=== PATIENT | male | born 1965 | race Hispanic/Latino ===

== ENCOUNTER 2020-04-27 18:05 | Inpatient (IN) | payer OTHER, SELFPAY ==
[2020-04-27] VITALS (22 sets, daily range): BP systolic 124–160; BP diastolic 66–90
[2020-04-27 19:16] LABS: BASOPHILS % (AUTO) 0.2 % (0.0-5.0); EOSINOPHILS % (AUTO) 0.1 % (0.0-8.0); HEMATOCRIT 43.8 % (42-54); LYMPHOCYTES % (AUTO) 9.8 % (21.0-51.0); MEAN CORPUSCULAR HEMOGLOBIN 32.5 pg (27.0-33.0); MEAN CORPUSCULAR VOLUME 95.6 fL (79-99); MONOCYTES % (AUTO) 8.1 % (3.0-13.0); NEUTROPHILS % (AUTO) 81.1 % (40.0-77.0); PLATELET COUNT (AUTO) 296 K/uL (130-400); RED BLOOD CELL COUNT(AUTO) 4.58 MIL/uL (4.50-6.20); RED CELL DISTRIBUTION WIDTH 12.3 % (11.0-15.5)
[2020-04-27] MEDS ORDERED: KETOROLAC TROMETHAMINE 30MG/ML ONE (19:24)
[2020-04-27 19:31] LABS: CREATININE 1.5 mg/dL (0.5-1.5); POTASSIUM 3.9 mmol/L (3.5-5.1)
[2020-04-27 19:38] LABS: BILIRUBIN,TOTAL 0.9 mg/dL (0.2-1.0); TOTAL PROTEIN, SERUM 8.2 g/dL (6.0-8.3)
[2020-04-27] MEDS ORDERED: CLINDAMYCIN 600 MG/D5% WATER 50 ML IV ONE (19:38)
[2020-04-27] MEDS ORDERED: PROPOFOL 10 MG/ML 20ML VIAL IV ONE (20:52)
[2020-04-27] MEDS ORDERED: LIDOCAINE PF 2% 5ML ABBOJECT ONE (20:52)
[2020-04-27] MEDS ORDERED: SUCCINYLCHOLINE 200MG/10ML SYR ONE (20:52)
[2020-04-27] MEDS ORDERED: FENTANYL CITRATE PF 50 MCG/1 ML 2ML VIAL ONE (20:53)
[2020-04-27] MEDS: SODIUM CHLORIDE 0.9% 1000ML 1,000 ML IV SCH (20:58)
[2020-04-27] MEDS ORDERED: SODIUM CHLORIDE 0.9% 1000ML 1,000 ML IV SCH (21:00)
[2020-04-27] MEDS ORDERED: ACETAMINOPHEN 325 MG TAB PO PRN ×2 (21:00)
[2020-04-27] MEDS ORDERED: ONDANSETRON HCL 4 MG/2 ML VIAL IV PRN (21:00)
[2020-04-27] MEDS ORDERED: DIPHENHYDRAMINE HCL 25 MG CAPSULE PO PRN (21:00)
[2020-04-27] MEDS ORDERED: NITROGLYCERIN 0.4 MG SL TAB SL PRN (21:00)
[2020-04-27] MEDS ORDERED: LEVOFLOXACIN 500 MG/D5W 100 ML 100 ML IV SCH (21:15)
[2020-04-27] MEDS ORDERED: LIDOCAINE 1%-EPI 1:100,000 20 ML VIAL IJ ONE (21:22)
[2020-04-27] MEDS ORDERED: ONDANSETRON HCL 4 MG/2 ML VIAL ONE (21:35)
[2020-04-27] MEDS ORDERED: MEPERIDINE-PF 25 MG/ML SYG ONE ×2 (21:35→22:56)
[2020-04-27 21:46] LABS: INR 1.06 (0.85-1.15); PARTIAL THROMBOPLASTIN TIME 34.1 SEC (26.3-35.5); PROTHROMBIN TIME 11.4 SEC (9.6-11.6)
[2020-04-27 21:52] LABS: MAGNESIUM 2.4 mg/dL (1.80-2.40)
[2020-04-27 22:04] LABS: CRP QUANTITATIVE 344.9 mg/L (0.00-9.0)
[2020-04-27] MEDS ORDERED: METRONIDAZOLE 500MG/100ML BAG 100 ML ONE (22:11)
[2020-04-27] MEDS: METRONIDAZOLE 500MG/100ML BAG 100 ML IV SCH (22:15)
[2020-04-28] VITALS (7 sets, daily range): BP systolic 147–169; BP diastolic 79–91
[2020-04-28] MEDS ORDERED: PROMETHAZINE HCL 25 MG TABLET PO PRN (01:00)
[2020-04-28] MEDS ORDERED: LORAZEPAM 2 MG/ML 1 ML VIAL IVP PRN ×2 (01:00)
[2020-04-28] MEDS ORDERED: CHLORDIAZEPOXIDE HCL 25 MG CAP PO PRN ×2 (01:00)
[2020-04-28] MEDS ORDERED: PHARMACY COMMUNICATION MISC PRN (01:00)
[2020-04-28] MEDS ORDERED: SODIUM CHLORIDE 0.9% 1000ML 1,000 ML IV SCH (01:15)
[2020-04-28] MEDS: HYDRALAZINE HCL 20 MG/ML VIAL IV PRN (01:37)
[2020-04-28] MEDS: CEFTRIAXONE SODIUM 1 GM IVP SCH ×2 (01:37→10:43)
[2020-04-28] MEDS ORDERED: CLINDAMYCIN 600 MG/D5% WATER 50 ML IV SCH (02:00)
--- NOTE | 2020-04-28 02:00 | NUR ---
DRESSING REINFORCED REINFORCED DRESSING, DRESSING SATURATED WITH SANGUINEOUS DRAINAGE. MEDIPORE TAPE APPLIED.
--- NOTE | 2020-04-28 02:30 | NUR ---
DRESSING CHANGE DRESSING CAME OFF. PLACED 4X4 GAUZE PADS AND SECURED WITH MEDIPORE TAPE. EDUCATED PT NOT TO TOUCH INCISION SITE WITH BARE HANDS, PT REPLIED OK.
--- NOTE | 2020-04-28 03:31 | NUR ---
DRESSING PT REPORTS THAT DRESSING CAME OFF. PT TOUCHING INCISION SITE WITH HANDS. REINFORCED TEACHING TO BOT TOUCH INCISION SITE, PT VERBALIZED OK. WILL REINFORCE DRESSING.
[2020-04-28] MEDS: METRONIDAZOLE 500MG/100ML BAG 100 ML IV SCH ×4 (03:38→20:47)
[2020-04-28 03:51] LABS: HEMATOCRIT 37.1 % (42-54); MEAN CORPUSCULAR HEMOGLOBIN 32.7 pg (27.0-33.0); MEAN CORPUSCULAR HGB CONC 34.2 g/dL (32.0-36.0); MEAN CORPUSCULAR VOLUME 95.6 fL (79-99); PLATELET COUNT (AUTO) 259 K/uL (130-400); RED BLOOD CELL COUNT(AUTO) 3.88 MIL/uL (4.50-6.20); RED CELL DISTRIBUTION WIDTH 12.4 % (11.0-15.5)
[2020-04-28 03:58] LABS: ALBUMIN 2.5 g/dL (3.5-5.0); BILIRUBIN,TOTAL 0.8 mg/dL (0.2-1.0); CREATININE 1.3 mg/dL (0.5-1.5); TOTAL PROTEIN, SERUM 6.8 g/dL (6.0-8.3)
--- NOTE | 2020-04-28 04:00 | NUR ---
ETOH ASSESSMENT PT PRESENTS WITH SWEATING, RESTLESSNESS AND MILD ANXIETY. ADMINISTERED MED PER MAR
[2020-04-28 06:46] LABS: APPEARANCE,URINE Clear (CLEAR); BILIRUBIN,URINE Negative (NEGATIVE); COLOR,URINE Yellow (YELLOW); GLUCOSE, URINE (UA) Negative (NEGATIVE); KETONES,URINE Trace mg/dL (NEGATIVE); LEUKOCYTE ESTERASE ,URINE Negative (NEGATIVE); NITRATE,URINE Negative (NEGATIVE); OCCULT BLOOD,URINE Negative (NEGATIVE); PROTEIN,URINE POS 1+ mg/dL (NEGATIVE)
[2020-04-28 06:57] LABS: BACTERIA,URINE Rare /HPF (None Seen); RBC,URINE 0-1 /HPF (0-1); SQUAMOUS EPITHELIAL CELL,UR Rare /HPF (0-2); WBC,URINE 0-1 /HPF (0-1)
[2020-04-28 07:55] LABS: LYMPHOCYTES % (MANUAL) 4 % (22-44); MAN.DIFF COMMENT-IMPRESSION MANUAL DIFFERENTIAL; MONOCYTES % (MANUAL) 4 % (2-9); PLATELET MORPHOLOGY COMMENT ADEQUATE; SEGMENTED NEUTROPHILS % 92 % (40-70)
[2020-04-28] MEDS: MULTIVITAMIN TABLET PO SCH (08:00)
[2020-04-28] MEDS: FOLIC ACID 1 MG TABLET PO SCH (08:00)
[2020-04-28] MEDS: NICOTINE 21 MG/ 24 HR PATCH TD SCH (08:01)
[2020-04-28] MEDS: THIAMINE HCL 100 MG/ML 2ML VIAL IM SCH (08:01)
[2020-04-28] MEDS: SODIUM CHLORIDE 0.9% 1000ML 1,000 ML IV SCH ×2 (09:42→17:00)
[2020-04-28] MEDS: ZOSYN 3.375GM+NS 50ML 50 ML IV SCH ×2 (13:53→22:41)
--- NOTE | 2020-04-28 14:00 | NUR ---
PT REST WELL, NO SWEATING, PT IS CALM, NO FEVER.
--- NOTE | 2020-04-28 17:26 | NUR ---
CM NOTE/IA UNABLE TO MEET WITH PATIENT FACE TO FACE DUE TO IN RESTRICTIVE PART OF HOSPITAL. PATIENT CALLED ON ROOM PHONE. PER PATIENT, IS INDEPENDENT WITH ADLS, NO USE OF DME, NO USE OF COMMUNITY RESOURCES, AND PLAN IS TO RETURN TO LIVES WITH HIS GIRLFRIEND IN [place]. PER PATIENT, WISHES TO ADD SECOND OF KIN TO FACESHEET. ADDED, JULIANNE LO [phone], GIRLFRIENDS MOTHERS TO FACESHEET PER REQUEST. ALSO CORRECTED GILFRIENDS NUMBER, MOMO VINES, . CORRECTIONS FAXED TO REGISTRATION FOR UPDATE OF FACESHEET, CONFIRMED RECEIVED BY FAX RECEIPT. Addendum: 04/28/20 at 1729 by ELVIA VINCENT RN CM Amended: Links added.
[2020-04-28] MEDS: ACETAMINOPHEN-CODEINE 300/30MG TAB PO PRN (17:47)
[2020-04-29] MEDS: SODIUM CHLORIDE 0.9% 1000ML 1,000 ML IV SCH ×3 (02:58→22:58)
[2020-04-29] MEDS: ZOSYN 3.375GM+NS 50ML 50 ML IV SCH ×3 (04:09→21:36)
[2020-04-29] MEDS: METRONIDAZOLE 500MG/100ML BAG 100 ML IV SCH ×4 (04:09→21:36)
[2020-04-29 04:34] VITALS: BP 174/88
[2020-04-29] MEDS: HYDRALAZINE HCL 20 MG/ML VIAL IV PRN ×2 (06:07→21:36)
[2020-04-29 06:39] LABS: BASOPHILS % (AUTO) 0.3 % (0.0-5.0); EOSINOPHILS % (AUTO) 1.1 % (0.0-8.0); HEMATOCRIT 40.4 % (42-54); LYMPHOCYTES % (AUTO) 10.3 % (21.0-51.0); MEAN CORPUSCULAR HEMOGLOBIN 32.7 pg (27.0-33.0); MEAN CORPUSCULAR HGB CONC 33.9 g/dL (32.0-36.0); MEAN CORPUSCULAR VOLUME 96.4 fL (79-99); MONOCYTES % (AUTO) 7.9 % (3.0-13.0); PLATELET COUNT (AUTO) 321 K/uL (130-400); RED BLOOD CELL COUNT(AUTO) 4.19 MIL/uL (4.50-6.20); RED CELL DISTRIBUTION WIDTH 12.4 % (11.0-15.5); WHITE BLOOD COUNT (AUTO) 9.5 K/uL (4.8-10.8)
[2020-04-29 07:02] LABS: CREATININE 1.2 mg/dL (0.5-1.5); POTASSIUM 4.2 mmol/L (3.5-5.1)
[2020-04-29 07:34] LABS: CRP QUANTITATIVE 213.7 mg/L (0.00-9.0)
[2020-04-29 08:00] VITALS: BP 143/88
--- NOTE | 2020-04-29 08:00 | NUR ---
DRESSING DRESSING CHANGED, NS TO CLEAN AREA AND 4X4. DRESSING DRY AND INTACT
[2020-04-29] MEDS: MULTIVITAMIN TABLET PO SCH (08:23)
[2020-04-29] MEDS: FOLIC ACID 1 MG TABLET PO SCH (08:23)
[2020-04-29] MEDS: NICOTINE 21 MG/ 24 HR PATCH TD SCH ×2 (08:24→09:35)
[2020-04-29] MEDS: THIAMINE HCL 100 MG/ML 2ML VIAL IM SCH (08:25)
[2020-04-29] MEDS: AMLODIPINE BESYLATE 5 MG TAB PO SCH (09:36)
[2020-04-29 11:27] VITALS: BP 142/76
--- NOTE | 2020-04-29 14:16 | NUR ---
DR. LESLEY SUTTON CAME TO SEE PT AT BEDSIDE AND REMOVED JAI DRAIN, WHICH PATIENT DIANNA WELL.
--- NOTE | 2020-04-29 15:50 | NUR ---
Referral to SS for Etoh, marijuana use, tobacco DAMIAN spoke with pt. by phone due to pt. room/floor restricted. Pt. stated that he is self employed, resides with his girlfriend and is independent with ADL's. DAMIAN spoke with pt. about Etoh, tobacco and marijuana use for which pt. admitted he has been using for decades. Pt. denied that use has effected daily activities. SW discussed risks associated with use; pt. voiced knowledge/awareness. SW spoke with pt. about seeking counseling for substance use and pt. reported that he has been to counseling twice in the past and is not interested in any more counseling. However, pt. was receptive to information. Pt. requested assistance in contacting [employer]/in house financial. DAMIAN notified [facility] that pt. requesting call. Pt. voiced no other needs/concerns. [facility] Substance Use Disorders pamphlet provided. MINNA made aware.
--- NOTE | 2020-04-29 15:51 | NUR ---
CHART CHECK COMPLETED. Pt IS A 54 Y.O. MALE ADMITTED SECONDARY TO LEFT MANDIBULAR ABSCESS, LAINEY'S ANGINA, PUI COVID, HYPERTENSION, ETOH WITHDRAWS. Pt DENIES PAST MEDICAL HISTORY. Pt CURRENTLY ON CLEAR LIQUID DIET. PLEASE REQUEST SKILLED SPEECH/SWALLOW EVALUATION IF Pt PRESENTS WITH +S/S OF ASPIRATION OR DIFFICULTY SWALLOWING. Addendum: 04/29/20 at 1554 by AKI VELEZ, [facility] Amended: Links added.
[2020-04-29 16:00] VITALS: BP 157/79
--- NOTE | 2020-04-29 18:03 | NUR ---
CM NOTE/TROPICAL PAMPHLET PER QUARTER TRIMMER, TROPICAL PAMPHLET TO BE GIVEN TO PATIENT. PATIENT IN RESTRICTIVE PART OF HOSPITAL, PAMPHLET GIVEN TO PRIMARY NURSE, EMMY CALZADA, TO GIVE TO PATIENT.
--- NOTE | 2020-04-29 18:09 | NUR ---
COVID [address] YELITZA SEVILLA TO MED/SURG AND WILL WAIT FOR CULTURE FROM SURGICAL AREA.
[2020-04-29 20:00] VITALS: BP 163/85
--- NOTE | 2020-04-29 22:08 | NUR ---
PT TRANSFER TRANSFER TO MED SURG FLOOR VIA WC. PT ON RA, NO C/O PAIN, NO DISTRESS NOTED. ELSI GUTHRIE RECEIVED REPORT OVER TELEPHONE, WILL RECEIVE PT IN ROOM 327. PERSONAL BELONGINGS TRANSPORTED WITH PT.
[2020-04-29] MEDS: ACETAMINOPHEN-CODEINE 300/30MG TAB PO PRN (22:25)
[2020-04-29 23:53] VITALS: BP 135/97
[2020-04-30] MEDS: METRONIDAZOLE 500MG/100ML BAG 100 ML IV SCH ×4 (04:14→23:54)
[2020-04-30] MEDS: ZOSYN 3.375GM+NS 50ML 50 ML IV SCH ×3 (04:14→20:07)
[2020-04-30 04:22] VITALS: BP 146/96
[2020-04-30] MEDS: ACETAMINOPHEN-CODEINE 300/30MG TAB PO PRN (06:25)
[2020-04-30 07:46] LABS: BASOPHILS % (AUTO) 0.2 % (0.0-5.0); EOSINOPHILS % (AUTO) 2.7 % (0.0-8.0); HEMATOCRIT 40.2 % (42-54); LYMPHOCYTES % (AUTO) 21.9 % (21.0-51.0); MEAN CORPUSCULAR HEMOGLOBIN 31.8 pg (27.0-33.0); MEAN CORPUSCULAR HGB CONC 33.1 g/dL (32.0-36.0); MEAN CORPUSCULAR VOLUME 96.2 fL (79-99); MONOCYTES % (AUTO) 10.4 % (3.0-13.0); NEUTROPHILS % (AUTO) 64.3 % (40.0-77.0); PLATELET COUNT (AUTO) 361 K/uL (130-400); RED BLOOD CELL COUNT(AUTO) 4.18 MIL/uL (4.50-6.20); RED CELL DISTRIBUTION WIDTH 12.1 % (11.0-15.5); WHITE BLOOD COUNT (AUTO) 6.3 K/uL (4.8-10.8)
[2020-04-30 07:56] LABS: POTASSIUM 3.6 mmol/L (3.5-5.1)
--- NOTE | 2020-04-30 08:00 | NUR ---
DONE IN EARLY AM NO CHANGES Addendum: 04/30/20 at 1102 by ANTONIA VINES RN RN Amended: Links added.
[2020-04-30 08:07] VITALS: BP 155/89
[2020-04-30] MEDS: SODIUM CHLORIDE 0.9% 1000ML 1,000 ML IV SCH ×2 (08:58→18:58)
[2020-04-30] MEDS: NICOTINE 21 MG/ 24 HR PATCH TD SCH ×2 (09:00→09:14)
[2020-04-30] MEDS: MULTIVITAMIN TABLET PO SCH (09:02)
[2020-04-30] MEDS: THIAMINE HCL 100 MG/ML 2ML VIAL IM SCH (09:02)
[2020-04-30] MEDS: FOLIC ACID 1 MG TABLET PO SCH (09:02)
[2020-04-30] MEDS: AMLODIPINE BESYLATE 5 MG TAB PO SCH (09:14)
--- NOTE | 2020-04-30 11:02 | NUR ---
daily wt. done in early am
[2020-04-30 11:27] VITALS: BP 136/87
[2020-04-30 15:57] VITALS: BP 138/90
[2020-04-30 20:16] VITALS: BP 142/76
[2020-05-01 00:28] VITALS: BP 167/82
[2020-05-01] MEDS: SODIUM CHLORIDE 0.9% 1000ML 1,000 ML IV SCH ×2 (03:25→14:58)
[2020-05-01] MEDS: METRONIDAZOLE 500MG/100ML BAG 100 ML IV SCH ×2 (03:25→11:59)
[2020-05-01 04:36] VITALS: BP 142/88
[2020-05-01] MEDS: ZOSYN 3.375GM+NS 50ML 50 ML IV SCH ×3 (04:57→20:09)
[2020-05-01 06:34] LABS: BASOPHILS % (AUTO) 0.3 % (0.0-5.0); EOSINOPHILS % (AUTO) 2.1 % (0.0-8.0); HEMATOCRIT 39.5 % (42-54); LYMPHOCYTES % (AUTO) 21.9 % (21.0-51.0); MEAN CORPUSCULAR HEMOGLOBIN 31.9 pg (27.0-33.0); MEAN CORPUSCULAR HGB CONC 33.2 g/dL (32.0-36.0); MEAN CORPUSCULAR VOLUME 96.1 fL (79-99); NEUTROPHILS % (AUTO) 65.9 % (40.0-77.0); PLATELET COUNT (AUTO) 389 K/uL (130-400); RED BLOOD CELL COUNT(AUTO) 4.11 MIL/uL (4.50-6.20); RED CELL DISTRIBUTION WIDTH 12.2 % (11.0-15.5); WHITE BLOOD COUNT (AUTO) 7.8 K/uL (4.8-10.8)
[2020-05-01 07:00] LABS: CREATININE 1.1 mg/dL (0.5-1.5)
[2020-05-01 08:20] VITALS: BP 189/83
[2020-05-01] MEDS: NICOTINE 21 MG/ 24 HR PATCH TD SCH ×2 (09:00→09:26)
[2020-05-01] MEDS: MULTIVITAMIN TABLET PO SCH (09:26)
[2020-05-01] MEDS: AMLODIPINE BESYLATE 5 MG TAB PO SCH (09:26)
[2020-05-01 11:27] VITALS: BP 141/76
--- NOTE | 2020-05-01 14:03 | NUR ---
I SPOKE TO DR SUTTON ON THE PHONE IN REGARDS TO PT'S C/O FEELING A BALL OR SWELLING AT SITE OF SURGERY ON CHIN AND HE STATED IT WAS NORMAL FOR PT TO FEEL A BALL TYPE SWELLING UNDER THE SKIN AT SITE OF I&D ON MANDIBLE AND IT WOULD TAKE ABOUT A MONTH FOR THAT TO GO AWAY; I HAVE UPDATED THE PATIENT ON THIS
[2020-05-01 16:01] VITALS: BP 166/84
[2020-05-01] MEDS: ACETAMINOPHEN-CODEINE 300/30MG TAB PO PRN (20:10)
[2020-05-01 20:20] VITALS: BP 156/84
[2020-05-02 00:24] VITALS: BP 165/94
[2020-05-02] MEDS: SODIUM CHLORIDE 0.9% 1000ML 1,000 ML IV SCH ×2 (00:26→10:58)
[2020-05-02 04:24] VITALS: BP 154/94
[2020-05-02] MEDS: ZOSYN 3.375GM+NS 50ML 50 ML IV SCH ×2 (05:02→13:51)
[2020-05-02 06:07] LABS: BASOPHILS % (AUTO) 0.4 % (0.0-5.0); EOSINOPHILS % (AUTO) 2.3 % (0.0-8.0); HEMATOCRIT 42.2 % (42-54); LYMPHOCYTES % (AUTO) 23.5 % (21.0-51.0); MEAN CORPUSCULAR HEMOGLOBIN 31.7 pg (27.0-33.0); MEAN CORPUSCULAR HGB CONC 33.2 g/dL (32.0-36.0); MEAN CORPUSCULAR VOLUME 95.5 fL (79-99); MONOCYTES % (AUTO) 8.9 % (3.0-13.0); NEUTROPHILS % (AUTO) 64.1 % (40.0-77.0); PLATELET COUNT (AUTO) 402 K/uL (130-400); RED BLOOD CELL COUNT(AUTO) 4.42 MIL/uL (4.50-6.20); WHITE BLOOD COUNT (AUTO) 7.3 K/uL (4.8-10.8)
[2020-05-02 06:10] LABS: CREATININE 1.1 mg/dL (0.5-1.5); POTASSIUM 3.8 mmol/L (3.5-5.1)
[2020-05-02 08:00] VITALS: BP 163/90
[2020-05-02] MEDS: NICOTINE 21 MG/ 24 HR PATCH TD SCH ×2 (09:00→09:34)
[2020-05-02] MEDS: MULTIVITAMIN TABLET PO SCH (09:33)
[2020-05-02] MEDS: AMLODIPINE BESYLATE 5 MG TAB PO SCH (09:33)
[2020-05-02 11:00] VITALS: BP 153/85
[2020-05-02] MEDS ORDERED: AMOX-429 PO (12:23)
[2020-05-02 16:00] VITALS: BP 148/83
--- NOTE | 2020-05-02 18:00 | NUR ---
DISCHARGE PATIENT GIVEN DISCHARGE INSTRUCTIONS AND EDUCATION ON FOLLOW UP APPOINTMENTS, NEW PRESCRIBED MEDICATIONS, INCISION CARE. PROVIDED PATIENT WITH SUPPLIES AND LIST OF PCP. ALL EDUCATION GIVEN VIA TEACH BACK. NO CONCERNS VOICED.
== END 2020-05-02 18:18 | disposition home or self-care (01) | DRG 854 ==
LOC: EDH 18:05 → EDHIP 18:06 → 4AH 22:57 → 3DH 04-29 22:17
PROVIDERS: ADMIT Internal Medicine; ATTEND Internal Medicine
PROC: 0J950ZZ Drainage of Left Neck Subcutaneous Tissue and Fascia, Open Approach (ICD-10-PCS; principal; 2020-04-27 21:31)
DX: A41.9 Sepsis, unspecified organism (principal); K12.2 Cellulitis and abscess of mouth; N17.9 Acute kidney failure, unspecified; L02.11 Cutaneous abscess of neck; F10.239 Alcohol dependence with withdrawal, unspecified; F17.210 Nicotine dependence, cigarettes, uncomplicated; F12.90 Cannabis use, unspecified, uncomplicated; K04.7 Periapical abscess without sinus; I10 Essential (primary) hypertension; Z20.828 Contact with and (suspected) exposure to other viral communicable diseases; Z82.49 Family history of ischemic heart disease and other diseases of the circulatory system
CPT/HCPCS: 36415; 70490; 80048; 80053; 81001; 82728; 82948; 83605; 83615; 83735; 84100; 84145; 85025; 85610; 85651; 85730; 86140; 87040; 87070; 87076; 87088; 87205; 93005; A4606; G0378; J0330; J0360; J0696; J1885; J2001; J2175; J2405; J2543; J2704; J3010; J3411; J3490; J7030; U0003